=== PATIENT | male | born 1970 | race Caucasian/White ===

== ENCOUNTER 2021-04-16 17:13 | Emergency (ER) | payer BC, SELFPAY ==
[2021-04-16 17:41] VITALS: BP 170/112; PULSE 62; RESP 16; TEMP 36.7; O2SAT 95
--- NOTE | 2021-04-16 18:15 | DI.RAD_ITS ---
Exam(s) XR HAND RT COMPLETE EXAM: XR HAND RT COMPLETE CLINICAL HISTORY: blunt trauma. TECHNIQUE: 2D digital imaging was performed. COMPARISON: No exams were available for comparison FINDINGS: There is swelling on the dorsal aspect of the hand. Small osteophytic density seen off the base of t he 5th metacarpal, not having obvious acute appearance but correlation with site of tenderness is rec ommended. In addition, there is cortical irregularity on the medial aspect of the base of the 2nd metacarpal wh ich may be a fracture, nondisplaced. Less evident on the other views. IMPRESSION: Findings at the bases of the 2nd and 5th metatarsals as described above. Correlation with site of te nderness is recommended. DATA REPOSITORY: RADIATION DOSE DELIVERED:
--- NOTE | 2021-04-16 19:22 | ED.GENADUL_ITS ---
Discharge Plan Disposition Patient Disposition: HOME Condition: Stable Discharge Details Clinical Impression: Closed right hand fracture Primary Care Provider: Unknown,Unknown ED Provider: Shanika Frank Home Meds and New Rx's Prescriptions: Continued Bp Medication RF: 0 No Action enalapril maleate 10 mg tablet 10 mg PO DAILY RF: 0 metoprolol tartrate 50 mg tablet 50 mg PO DAILY RF: 0 Discharge Instructions Instructions: Hand Fracture (ED) Additional Instructions: Rest, ice, and elevate the affected area as much as possible. Alternate tylenol and motrin as needed and directed for pain. Call the orthopedics office tomorrow morning to schedule a follow-up appointment for reevaluation Return to the emergency department if you develop any worsening or new concer agustin symptoms. Referrals: Anthony Ludwig MD [ [facility] STAFF PHYSICIAN] - Discharge Data Discharge Date/Time-TO BE ENTERED AT DEPARTURE: 04/16/21 20:38 Discharge Physician: Shanika Frank Medical Decision Making 51-year-old male presents with right hand pain and swelling after he punched a water cooler 2 days ago. Patient referred for x-ray which notes a minimally displaced fracture at the base of the second metacarpal bone. Patient has tenderness and swelling in this area. Volar splint placed and sling given. Patient placed on orthopedic follow-up list. Advised on importance of rest, ice and elevation. Usual and customary return precautions given prior to discharge. Medical Records Medical records reviewed: Yes I reviewed the patient's medical records. Imaging Data Radiologic Study: Radiologist's impression: XR Right Hand Exam date and time: 04/16/2021 6:22 PM Age: 51 years old Clinical indication: Injury or trauma; Blunt trauma (contusions or hematomas); Right; Injury date: 04/16/21; Injury details: Hit hand on something, dorsal hand pain TECHNIQUE: Imaging protocol: XR Right hand. Views: 3 or more views. COMPARISON: No relevant prior studies available. FINDINGS: Bones/joints: Small linear lucency at the base of the 2nd metacarpal, concerning for a minimally displaced fracture versus artifact from superimposition. 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 No other acutely displaced fractures are identified. There is no evidence of joint dislocation. No aggressive osseous lesions. Soft tissues: Swelling at the dorsal aspect of the hand. IMPRESSION: 1. Concern for a minimally displaced fracture at the base of the 2nd metacarpal. Differential would include artifact from superimposition of structures. Consider correlation with point tenderness. 2. Swelling at the dorsal aspect of the hand. Lab Data Lab results reviewed: Yes I reviewed the patient's lab results. HPI General Mode of arrival: ambulatory . Date/Time Provider Initiated Documentation: 04/16/21 17:52 . Limitations to Documentation: no limitations . Information obtained by: patient . HPI Narrative: Patient is a 51-year-old male who presents to the ED with a complaint of right hand pain after punching a cooler 2 days ago. Patient states he is having pain in his right dorsal proximal hand near the second and third metacarpals. He has not taken a medication for pain. He denies any pain in his wrist. Related Data Home Medications Medication Instructions Recorded Confirmed Bp Medication 04/16/21 enalapril maleate 10 mg PO DAILY 04/16/21 04/16/21 metoprolol tartrate 50 mg PO DAILY 04/16/21 04/16/21 Allergies Allergy/AdvReac Type Severity Reaction Status Date / Time No Known Allergies Allergy Unverified 04/16/21 17:44 General Stated Complaint: Orthopedic ISREAL: 4 Review of Systems All systems reviewed & are unremarkable except as noted in HPI and below [facility] Medical History (Updated 04/21/21 @ 09:01 by Shanika Frank DO) HTN (hypertension) Surgical History (Updated 04/21/21 @ 09:01 by Shanika Frank DO) No significant past surgical history Social History Smoking/Tobacco Use Status: Never Smoking risk assessment performed?: Yes Substance use type: does not use Exam Const General: cooperative, healthy appearing and no acute distress [facility] Head: normal to inspection Mouth: oral mucosae normal Eyes General: appearance normal, both eyes and all related structures Neck Neck: normal visual inspection Resp Effort & Inspection: normal respiratory effort and able to speak in complete sentences Cardio Rate: regular rate Skin General skin exam: no rashes or lesions noted Neuro General: patient alert, patient awake and patient oriented x3 Motor: muscle tone normal throughout Extrem General: capillary refill normal Hand/finger images: 1. Tenderness to palpation with surrounding edema overlying the right dorsal hand on the proximal aspect near the second through third metacarpals. There are no open wounds. No obvious deformity. Other: No tenderness to palpation overlying dorsal or volar wrist. No right sn uffbox tenderness. No pain in right wrist with range of motion. Right radial and ulnar pulses intact. Fingers of right hand normal to inspection without tenderness to palpation, pain with range of motion or evidence of trauma. Psych Appearance: grossly normal Affect: normal affect Course Vital Signs Vital signs: Vital Signs Temperature 98.1 F 04/16/21 17:41 Pulse 62 04/16/21 17:41 Respiratory Rate 16 04/16/21 17:41 Blood Pressure 170/112 H 04/16/21 17:41 Pulse Oximetry 95 04/16/21 17:41 Temperature 98.1 F 04/16/21 17:41 Temperature Source Skin 04/16/21 17:41 Pulse 62 04/16/21 17:41 Respiratory Rate 16 04/16/21 17:41 Respiratory Effort Non-Labored 04/16/21 17:41 Blood Pressure 170/112 H 04/16/21 17:41 Blood Pressure Position Sitting 04/16/21 17:41 Pulse Oximetry 95 04/16/21 17:41 Oxygen Delivery Method Room Air 04/16/21 17:41 Oxygen Flow Rate 0 04/16/21 17:41 Pain Level 7 04/16/21 18:22 Procedures Orthopedic Splinting/Casting Injury #1: Side: right Upper Extremity Injury Location: hand Upper Extremity Immobilizer: volar splint PAWSS Have you Been Recently Intoxicated or Drunk Within the Last 30 days?: Yes Have you Ever Experienced Previous Episodes of Alcohol Withdrawal?: No Have you ever Experienced Withdrawal Seizures?: No Have you ever Experienced Delirium Tremens(DT)s?: No Have you ever undergone Alcohol Rehabilitation Treatment (i.e, inpt ot outpatient treatment programs)?: No Have you ever Experienced Blackouts?: No Have you ever Combined Alcohol with other Downers within the last 90 days?: No Have you ever Combined Alcohol with any other Substance of Abuse during the last 90 days?: No Positive Blood Alcohol level on Presentation? [PCS.BAL]: No Evidence of Increased Autonomic Activity (i.e. HR>120, tremor, sweating, agitation, nausea)?: No Result: 1
--- NOTE | 2021-04-16 19:46 | DI.VRAD_ITS ---
PROCEDURE INFORMATION: Exam: XR Right Hand Exam date and time: 04/16/2021 6:22 PM Age: 51 years old Clinical indication: Injury or trauma; Blunt trauma (contusions or hematomas); Right; Injury date: 04/16/21; Injury details: Hit hand on something, dorsal hand pain TECHNIQUE: Imaging protocol: XR Right hand. Views: 3 or more views. COMPARISON: No relevant prior studies available. FINDINGS: Bones/joints: Small linear lucency at the base of the 2nd metacarpal, concerning for a minimally displaced fracture versus artifact from superimposition. 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 No other acutely displaced fractures are identified. There is no evidence of joint dislocation. No aggressive osseous lesions. Soft tissues: Swelling at the dorsal aspect of the hand. IMPRESSION: 1. Concern for a minimally displaced fracture at the base of the 2nd metacarpal. Differential would include artifact from superimposition of structures. Consider correlation with point tenderness. 2. Swelling at the dorsal aspect of the hand. Dictated and Authenticated by: Vladimir Chacon MD. Ordering:PARKER Voss MD
== END 2021-04-16 20:38 | disposition home or self-care (01) ==
PROVIDERS: Emergency Provider Physician Assistant
DX: S62.310A Displaced fracture of base of second metacarpal bone, right hand, initial encounter for closed fracture (principal); W22.09XA Striking against other stationary object, initial encounter
CPT/HCPCS: 26600; 73130

== ENCOUNTER 2021-04-23 14:00 | Outpatient (CLI) | payer BC, SELFPAY ==
--- NOTE | 2021-04-23 12:45 | DI.RAD_ITS ---
Exam(s) XR HAND RT COMPLETE EXAM: XR HAND RT COMPLETE CLINICAL HISTORY: R hand fx. TECHNIQUE: 2D digital imaging was performed. COMPARISON: CR,XR XR HAND RT COMPLETE from 04/16/2021 FINDINGS: There is no evidence of acute fracture nor subluxation. No abnormal soft tissue calcifications. The re is degenerative change in the DIP joint of the 3rd-middle finger. No radiopaque foreign body. No erosions evident. IMPRESSION: DATA REPOSITORY: RADIATION DOSE DELIVERED:
== END 2021-04-23 14:01 | disposition home or self-care (01) ==
LOC: DIORS 14:01
PROVIDERS: PCP Family Medicine; Referring Provider Family Medicine; Visit Provider Physician Assistant
DX: S62.310D Displaced fracture of base of second metacarpal bone, right hand, subsequent encounter for fracture with routine healing (principal)
CPT/HCPCS: 73130